=== PATIENT | female | born 1950 | race Caucasian/White ===

== ENCOUNTER 2024-08-20 08:19 | Inpatient (IN) | payer BC ==
[2024-08-12 10:47] LABS: BASOPHILS % (AUTO) 0.6 % (0-1); EOSINOPHILS # (AUTO) 0.1 X10'3 (0-0.9); EOSINOPHILS % (AUTO) 1.1 % (0-6); LYMPHOCYTES # (AUTO) 1.2 X10'3 (1.1-4.8); LYMPHOCYTES % (AUTO) 19.5 % (21-51); MEAN CORPUSCULAR HEMOGLOBIN 29.1 PG (27.0-31.0); MEAN CORPUSCULAR HGB CONC 32.2 g/dL (33.0-36.5); MEAN CORPUSCULAR VOLUME 90.3 FL (78-98); MEAN PLATELET VOLUME 7.7 FL (7.4-10.4); MONOCYTES # (AUTO) 0.5 X10'3 (0-0.9); NEUTROPHILS # (AUTO) 4.4 X10'3 (1.8-7.7); NEUTROPHILS % (AUTO) 70.8 % (42-75); PRE OP HEMATOCRIT 41.8 % (35.0-45.0); PRE OP HEMOGLOBIN 13.5 g/dL (12.0-16.0); PRE OP PLATELET COUNT 201 X10'3 (140-440); PRE OP WHITE BLOOD COUNT 6.3 10'3 (4.8-10.8); RED BLOOD COUNT 4.63 X10'6 (4.20-5.60); RED CELL DISTRIBUTION WIDTH 13.5 % (11.5-14.5)
[2024-08-12 11:05] LABS: ALBUMIN 3.8 G/DL (3.4-5.0); ALBUMIN/GLOBULIN RATIO 1.1 (1.1-1.5); ALKALINE PHOSPHATASE 47 IU/L (46-116); BLOOD UREA NITROGEN 17 MG/DL (7-18); BUN/CREATININE RATIO 23.9 (10.0-20.0); CALCIUM 9.2 MG/DL (8.5-10.1); CHLORIDE 103 MMOL/L (99-107); CREATININE 0.71 MG/DL (0.40-0.90); PRE OP ALT 23 U/L (30-65); PRE OP ANION GAP 5 (8-16); PRE OP BILIRUB, TOTAL 0.5 MG/DL (0.0-1.0); PRE OP GLUCOSE 94 MG/DL (70-104); PRE OP SODIUM 139 MMOL/L (135-145); TOTAL CARBON DIOXIDE 31.5 MMOL/L (24-32); TOTAL PROTEIN 7.3 G/DL (6.4-8.2); eGFR 81 ML/MIN
[2024-08-12 11:09] LABS: APTT 28 SECONDS (22-32); PRE OP PROTIME 10.9 SECONDS (9.0-12.0)
[2024-08-12 11:28] LABS: PRE OP AST 31 U/L (10-37); PRE OP POTASSIUM 4.6 MMOL/L (3.4-5.1)
[2024-08-20] VITALS (27 sets, daily range): BP systolic 103–141; BP diastolic 45–71; PULSE 70–85; RESP 11–18; TEMP 97.6–97.9; O2SAT 95–100
[~2024-08-20] VITALS: Ht 154.9 cm; Wt 61.7 kg
[2024-08-20] MEDS: DOCUMENT DATE & TIME OF BETA-BLOCKER PO ONE (05:30)
[2024-08-20] MEDS: ceFAZolin 2gm in dextrose, iso 50 ML IV ONE (05:30)
[2024-08-20] MEDS: tranexamic acid inj. 1,000 MG in normal saline IV soln 100ML IV ONE (05:30)
[~2024-08-20 08:19] MED LIST: ACYC-1 PO; ALEN70TA60 PO; ASPI81TA52 PO; ATOR20TA66 PO; CLEAR LAX PO; DOXY25TA PO; FURO20TA4 PO; GABA-1405 PO; METO-395 PO; ROPI1TAB47 PO; TIZA4CAP PO
[2024-08-20] MEDS ORDERED: TYLENOL PO (09:23)
[2024-08-20] MEDS: famotidine 20mg tablet PO ONE (09:39)
[2024-08-20] MEDS: ringers solution, lacted 1,000 ML IV SCH (09:40)
[2024-08-20] MEDS ORDERED: vancomycin 1,000mg inj ONE (10:44)
[2024-08-20] MEDS ORDERED: tobramycin sulfate 1.2gm vial ONE (10:44)
[2024-08-20] MEDS ORDERED: gelatin sponge, absorbable (Gelfoam 100) sponge TP ONE (10:44)
[2024-08-20] MEDS ORDERED: methylene blue (5mg/ml) 50mg/10ml ampul IV ONE (10:45)
[2024-08-20] MEDS ORDERED: tobramycin 40mg/ml inj ONE (10:48)
[2024-08-20] MEDS ORDERED: Thrombin (Bovine) 5,000 unit vial TP ONE (11:20)
[2024-08-20] MEDS ORDERED: ringers solution, lacted 1,000 ML IV SCH (11:35)
[2024-08-20] MEDS ORDERED: ondansetron/PF 4mg/2ml inj IV PRN ×3 (11:35→21:55)
[2024-08-20] MEDS ORDERED: morphine 4 MG/ML inj SYRINge IV PRN (11:35)
[2024-08-20] MEDS ORDERED: morphine 2 MG/ML inj. syringe IV PRN (11:35)
[2024-08-20] MEDS ORDERED: meperidine/PF 25mg/ml syringe IV PRN ×2 (11:35)
[2024-08-20] MEDS ORDERED: proCHLORperazine 10 MG/2 ml inj IV PRN (11:35)
[2024-08-20] MEDS: midazolam 1 mg/ML 2ml injection ONE (11:42)
[2024-08-20] MEDS ORDERED: ROPIVAcaine 0.5% (5mg/ml) 30ml vial ONE (11:51)
[2024-08-20] MEDS ORDERED: fentaNYL/PF 50MCG/1 ML 2ML syringe ONE (11:53)
[2024-08-20] MEDS ORDERED: propofol inj 20 ML IV ONE (11:53)
[2024-08-20] MEDS ORDERED: midazolam 1 mg/ML 2ml injection ONE (11:53)
[2024-08-20] MEDS ORDERED: magnesium hydroxide 30ml (MOM) UD suspension PO PRN (11:55)
[2024-08-20] MEDS ORDERED: acetaminophen 325mg tablet PO PRN ×2 (11:55→21:55)
[2024-08-20] MEDS ORDERED: diphenhydrAMINE 25mg capsule PO PRN (11:55)
[2024-08-20] MEDS ORDERED: bisacodyl 10mg suppository rectal RC PRN (11:55)
[2024-08-20] MEDS ORDERED: oxyCODONE IR 5mg (immed. release) tablet PO PRN (11:55)
[2024-08-20] MEDS ORDERED: naloxone 0.4 mg/ml inj IV PRN (11:55)
[2024-08-20] MEDS ORDERED: dexamethasone sod phosphate 4mg/ml inj. ONE (16:06)
[2024-08-20] MEDS ORDERED: ondansetron/PF 4mg/2ml inj ONE (16:06)
[2024-08-20] MEDS ORDERED: ePHEDrine 50MG/ML INJ. ONE (16:06)
[2024-08-20] MEDS ORDERED: rocuronium 10mg/ml inj IV ONE (16:06)
[2024-08-20] MEDS: meperidine/PF 25mg/ml syringe IV PRN (17:32)
[2024-08-20] MEDS ORDERED: potassium Cl 20 mEq SR tablet PO PRN ×2 (21:55)
[2024-08-20] MEDS ORDERED: mag hydrox/Alum hydrox/simeth 30ml oral suspension PO PRN (21:55)
[2024-08-20] MEDS ORDERED: magnesium sulf-water 4G/100mL 100 ML IV PRN (21:55)
[2024-08-20] MEDS ORDERED: magnesium sulf-water 2g/50mL 50 ML IV PRN (21:55)
[2024-08-20] MEDS ORDERED: magnesium Cl slow-release 64mg tablet PO PRN (21:55)
[2024-08-20] MEDS ORDERED: potassium Cl 40MEQ/1/2NS 520ml 520 ML IV PRN (21:55)
[2024-08-20] MEDS: oxyCODONE IR 5mg (immed. release) tablet PO PRN (22:13)
[2024-08-20] MEDS: ceFAZolin 2gm in dextrose, iso 50 ML IV SCH (22:14)
[2024-08-20] MEDS: potassium cl 20mEq in 1/2 NS 1,000 ML IV SCH (22:14)
[2024-08-21 02:00] VITALS: BP 102/46; PULSE 69; RESP 16; TEMP 98.1; O2SAT 99
[2024-08-21] MEDS: acetaminophen 325mg tablet PO PRN (05:06)
[2024-08-21 06:00] VITALS: BP 133/53; PULSE 83; RESP 16; TEMP 96.5; O2SAT 98
[2024-08-21 06:34] LABS: BASOPHILS % (AUTO) 0.1 % (0-1); EOSINOPHILS % (AUTO) 0 % (0-6); HEMATOCRIT 33.4 % (35.0-45.0); HEMOGLOBIN 11.5 g/dl (12.0-16.0); LYMPHOCYTES # (AUTO) 0.5 X10'3 (1.1-4.8); LYMPHOCYTES % (AUTO) 4.8 % (21-51); MEAN CORPUSCULAR HEMOGLOBIN 30.5 PG (27.0-31.0); MEAN CORPUSCULAR HGB CONC 34.4 g/dL (33.0-36.5); MEAN CORPUSCULAR VOLUME 88.7 FL (78-98); MEAN PLATELET VOLUME 7.8 FL (7.4-10.4); MONOCYTES # (AUTO) 0.6 X10'3 (0-0.9); MONOCYTES % (AUTO) 5.7 % (2-12); NEUTROPHILS # (AUTO) 9.8 X10'3 (1.8-7.7); NEUTROPHILS % (AUTO) 89.4 % (42-75); PLATELET COUNT 194 X10'3 (140-440); RED BLOOD COUNT 3.76 X10'6 (4.20-5.60); RED CELL DISTRIBUTION WIDTH 13.3 % (11.5-14.5)
[2024-08-21 07:01] LABS: ALANINE AMINOTRANSFERASE 18 U/L (12-78); ALBUMIN 3.5 G/DL (3.4-5.0); ALBUMIN/GLOBULIN RATIO 1.2 (1.1-1.5); ALKALINE PHOSPHATASE 39 IU/L (46-116); ANION GAP 8 (8-16); ASPARTATE AMINO TRANSFERASE 28 U/L (10-37); BILIRUBIN,TOTAL 0.3 MG/DL (0.1-1.0); BLOOD UREA NITROGEN 16 MG/DL (7-18); BUN/CREATININE RATIO 16.3 (10.0-20.0); CALCIUM 8.3 MG/DL (8.5-10.1); CHLORIDE 102 MMOL/L (99-107); CREATININE 0.98 MG/DL (0.40-0.90); GLUCOSE 153 MG/DL (70-104); PHOSPHORUS 2.6 MG/DL (2.3-4.5); POTASSIUM 4.1 MMOL/L (3.5-5.1); SODIUM 134 MMOL/L (135-145); TOTAL CARBON DIOXIDE 24.5 MMOL/L (24-32); TOTAL PROTEIN 6.4 G/DL (6.4-8.2); eCRCL 39 ML/MIN; eGFR 56 ML/MIN
[2024-08-21] MEDS ORDERED: aspirin 81mg, enteric-coated 1 TAB TABLET.DR PO SCH (08:00)
[2024-08-21] MEDS: K and/or MAG REPLACEMENT MC SCH (08:00)
[2024-08-21] MEDS: aspirin 325mg tablet PO SCH (08:09)
[2024-08-21] MEDS: gabapentin 300mg capsule PO SCH (08:09)
[2024-08-21] MEDS: furosemide 20MG tablet PO SCH (08:09)
[2024-08-21] MEDS: metoprolol succinate 25mg (24-HOUR) SR. Tablet PO SCH (08:19)
[2024-08-21 10:00] VITALS: BP 108/48; PULSE 72; RESP 20; TEMP 97.2; O2SAT 98
[2024-08-21] MEDS ORDERED: DOXY100T56 PO (12:48)
[2024-08-21 12:53] VITALS: RESP 16
[2024-08-21] MEDS ORDERED: atorvastatin 20mg tablet PO SCH (21:00)
[2024-08-21] MEDS ORDERED: ROPINIRole 1mg tablet PO SCH (21:00)
[2024-08-21] MEDS ORDERED: DOXYLAMINE SUCCINATE 12.5 MG PO SCH (21:00)
== END 2024-08-21 15:00 | disposition home or self-care (01) | DRG 483 ==
LOC: PAS 08:19 → PAS IN 11:59 → ORTHO 4S 18:50
PROVIDERS: ADMIT Specialist; ATTEND Specialist
PROC: 0RRK00Z Replacement of Left Shoulder Joint with Reverse Ball and Socket Synthetic Substitute, Open Approach (ICD-10-PCS; 2024-08-20)
PROC: 0RPK08Z Removal of Spacer from Left Shoulder Joint, Open Approach (ICD-10-PCS; 2024-08-20)
PROC: 0PSC04Z Reposition Right Humeral Head with Internal Fixation Device, Open Approach (ICD-10-PCS; principal; 2024-08-20 11:51)
DX: T84.89XA Other specified complication of internal orthopedic prosthetic devices, implants and grafts, initial encounter (principal); M75.102 Unspecified rotator cuff tear or rupture of left shoulder, not specified as traumatic; M81.0 Age-related osteoporosis without current pathological fracture; I10 Essential (primary) hypertension; I05.0 Rheumatic mitral stenosis; E78.5 Hyperlipidemia, unspecified; Z96.612 Presence of left artificial shoulder joint; Y79.2 Prosthetic and other implants, materials and accessory orthopedic devices associated with adverse incidents; Z91.048 Other nonmedicinal substance allergy status; Y92.89 Other specified places as the place of occurrence of the external cause
CPT/HCPCS: 36415; 73030; 76000; 80053; 82948; 83735; 84100; 85025; 85610; 85730; 86885; 86900; 86901; 87070; 87075; 87081; 93306; 97116; 97161; 97530; A4565; A4615; A4618; A6258; A6402; A6449; A6455; A7000; C1713; C1776; G0378; J0690; J0735; J1100; J2175; J2250; J2405; J2704; J2795; J3010; J3260; J3370; J3480; J3490; J7120; Q9968